=== PATIENT | male | born 1985 | race Caucasian/White ===

== ENCOUNTER 2018-01-24 08:05 | Outpatient (CLI) | payer BC ==
--- NOTE | 2018-01-24 09:27 | ULT ---
RIGHT UPPER QUADRANT ULTRASOUND: History: Elevated LFTs. Technique: Multiplanar grayscale and color doppler images were obtained in a right upper quadrant abd ominal ultrasound. FINDINGS: The liver demonstrates increased echogenicity without focal lesions or intrahepatic ductal dilatation . The gallbladder is normal without sludge, stones, gallbladder wall thickening or pericholecystic fl uid. The common bile duct is normal measuring 3 mm. The visualized portions of the pancreas are unremarkable. The right kidney is normal in echogenicity without hydronephrosis or calculus and measures 11.7 cm in length. IMPRESSION: Fatty liver. POS: [facility]
== END 2018-01-24 08:06 | disposition home or self-care (01) ==
LOC: SCSULT 08:05
PROVIDERS: ATTEND Family Medicine
DX: R74.8 Abnormal levels of other serum enzymes (principal); K76.0 Fatty (change of) liver, not elsewhere classified
CPT/HCPCS: 76705